=== PATIENT | female | born 1980 | race Caucasian/White ===

== ENCOUNTER 2020-10-25 16:32 | Emergency (ER) | payer OTHER ==
[~2020-10-25] VITALS: Ht 157.5 cm; Wt 127.8 kg
[~2020-10-25 16:32] MED LIST: METO10TA81 PO
[2020-10-25] MEDS ORDERED: ONDANSETRON ODT 4 MG TAB.RAPDIS PO ONE (17:00)
[2020-10-25] MEDS ORDERED: IV NORMAL SALINE 1,000ML 1,000 ML IV ONE (18:00)
[2020-10-25] MEDS ORDERED: diphenhydrAMINE 50 MG/ML VIAL IVP ONE (18:00)
[2020-10-25] MEDS ORDERED: PROCHLORPERAZINE 10 MG/2 ML VIAL. IV ONE (18:00)
[2020-10-25] MEDS ORDERED: KETOROLAC 15 MG/ML VIAL. IVP ONE (18:00)
--- NOTE | 2020-10-25 18:30 | PHYS DOC ---
Past History Past Medical History: CAD, Depression, Fibromyalgia, GERD, High Cholesterol, Hypertension Past Surgical History: Cholecystectomy, , Tonsillectomy Alcohol Use: Occasionally Drug Use: None General Adult EDM: Chief Complaint: MULTIPLE COMPLAINTS HPI: HPI: Patient is a 40-year-old female being seen in the ER for sore throat and migraine headache. Patient reports that her daughter was positive for strep yesterday so she is concerned that she may have strep also. Patient denies any shortness of breath or difficulty swallowing. Patient has a history of migraine headaches and she takes a triptan. She states that her triptan is just not been helping with her pain. She is reporting nausea and photophobia and phonophobia. She states that this is not the worst headache she is ever experienced and this is very consistent with her typical migraines. She denies any fevers, neck stiffness, vision changes, cough, Covid exposures. Review of Systems: Review of Systems: 14 body systems of the review of systems have been reviewed. See HPI for pertinent positive and negative responses, otherwise all other systems are negative, nonpertinent or noncontributory Current Medications: Current Meds: Current Medications Medications (Trade) Dose Ordered Sig/Nitish Start Time Stop Time Status Last Admin Dose Admin Diphenhydramine HCl (Benadryl) 25 mg 1X ONCE 10/25/20 18:00 10/25/20 18:01 DC Ketorolac Tromethamine (Toradol 15mg Vial) 15 mg 1X ONCE 10/25/20 18:00 10/25/20 18:01 DC Ondansetron HCl (Zofran Odt) 4 mg 1X ONCE 10/25/20 17:00 10/25/20 17:01 DC 10/25/20 17:01 4 MG Prochlorperazine Edisylate (Compazine) 10 mg 1X ONCE 10/25/20 18:00 10/25/20 18:01 DC Sodium Chloride 1,000 ml @ 1,000 mls/hr 1X ONCE 10/25/20 18:00 10/25/20 18:59 Allergies: Allergies: Allergies Coded Allergies Type Severity Reaction Last Updated Verified dichloralphenazone Allergy Intermediate "ITCHY, DIZZY, SHORTNESS OF BREATH" 06/28/14 Yes isometheptene Allergy Intermediate "ITCHY, DIZZY, SHORTNESS OF BREATH" 06/28/14 Yes Physical Exam: PE: Constitutional: Well developed, well nourished, no acute distress, non-toxic appearance. [] HENT: Normocephalic, atraumatic, bilateral external ears normal, oropharynx moist, no oral exudates, nose normal, erythematous pharynx, no tonsillar enlargement, no exudate. [] Eyes: PERRL, 5 mm pupils bilaterally, EOMI, conjunctiva normal, no discharge. [] Neck: Normal range of motion, no neutral rigidity, no tenderness, supple, no stridor, no cervical lymphadenopathy, no occipital lymphadenopathy. [] Cardiovascular:Heart rate regular rhythm, no murmur [] Lungs & Thorax: Bilateral breath sounds clear to auscultation [] Abdomen: Bowel sounds normal, soft, no tenderness, no masses, no pulsatile masses. [] Skin: Warm, dry, no erythema, no rash. [] Back: No tenderness, normal range of motion Extremities: No tenderness, no cyanosis, no clubbing, ROM intact, no edema. [] Neurologic: Alert and oriented X 3, normal motor function, normal sensory function, no focal deficits noted. [] Psychologic: Affect normal, judgement normal, mood normal. [] Current Patient Data: Labs: Laboratory Tests Test 10/25/20 16:51 Group A Streptococcus Rapid Negative (NEGATIVE) Vital Signs: Vital Signs Date Time Temp Pulse Resp B/P (MAP) Pulse Ox O2 Delivery O2 Flow Rate FiO2 10/25/20 16:44 97.6 72 14 152/76 (101) 98 Room Air EKG: EKG: [] Radiology/Procedures: Radiology/Procedures: [] Heart Score: C/O Chest Pain: No Risk Factors: Risk Factors: DM, Current or recent (<one month) smoker, HTN, HLP, family history of CAD, obesity. Risk Scores: Score 0 - 3: 2.5% MACE over next 6 weeks - Discharge Home Score 4 - 6: 20.3% MACE over next 6 weeks - Admit for Clinical Observation Score 7 - 10: 72.7% MACE over next 6 weeks - Early Invasive Strategies Course & Med Decision Making: Course & Med Decision Making Pertinent Labs and Imaging studies reviewed. (See chart for details) Patient is a 40-year-old female being seen in the ER for sore throat. Her rapid strep test was negative. Patient is also being seen in the ER for a migraine headache. She states that her headache is very typical of her migraine headaches she takes a triptan at home without any relief in her symptoms. She was given a Zofran prior to being brought back to the ER room and she states that it is drastically improved her symptoms. But she still has a mild headache. Denies thunderclap headache, denies nuchal rigidity, no meningeal signs. Patient treated with migraine cocktail in the ER and she reports improvement in her symptoms. She is requesting Zofran prescription for home. Patient be discharged home to follow-up with her primary care provider. Patient advised to do warm salt water gargles take Tylenol/ibuprofen and take her triptan as directed. I discussed with patient all findings and diagnostic testing as well as the need to follow-up with PCP for further evaluation and treatment or return to the ER if any new or worsening symptoms. Strict return precautions were also discussed at length. Patient voiced understanding and agreement with the plan. Patient is hemodynamically stable at the time of disposition. Molly Disclaimer: Molly Disclaimer: This electronic medical record was generated, in whole or in part, using a voice recognition dictation system. Departure Departure: Impression: Primary Impression: Migraine headache Qualified Codes: G43.909 - Migraine, unspecified, not intractable, without status migrainosus Disposition: 01 HOME / SELF CARE / HOMELESS Condition: GOOD Referrals: TEO FIGUEROA (PCP) Patient Instructions: Migraine Headache, Sore Throat, [id number] Additional Instructions: You were seen in the ER today for a migraine headache and a sore throat. Your rapid strep test was negative. You can use warm salt water gargles. Throat culture is being sent out and you will be notified of those results when they become available. You can take Tylenol/ibuprofen for pain. You were seen in the ER for a migraine headache, you were treated with a migraine cocktail. You are being discharged home with medication for nausea, please use this as directed. Continue to take your migraine medications as previously prescribed. Increase your fluids and rest. Avoid watching TV, cell phone use or tablet use. Rest in a dark quiet area. Please avoid any triggers for migraines. Follow-up with your primary care provider tomorrow regarding your ER visit. If you develop worsening of your headache, sore throat, weakness, speech issues difficulty swallowing or breathing, high fevers refractory to treatment or intractable nausea or vomiting please return to the ER. EMERGENCY DEPARTMENT GENERAL DISCHARGE INSTRUCTIONS Thank you for coming to [facility] (ED) today and trusting us with you care. We trust that you had a positivie experience in our Emergency Department. If you wish to speak to the department management, you may call the director at [phone]. YOUR FOLLOW UP INSTRUCTIONS ARE FOLLOWS: 1. Do you have a private Doctor? If you do not have a private doctor, please ask for a resource list of physicians or clinics that may be able to assist you with follow up care. 2. The Emergency Physician has interpreted your x-rays. The X-Ray specialist will also review them. If there is a change in the findings, you will be notified in 48 hours when at all possible. 3. A lab test or culture has been done, your results will be reviewed and you will be notified if you need a change in treatment. ADDITIONAL INSTRUCTIONS AND INFORMATION: 1. Your care today has been supervised by a physician who is specially trained in emergency care. Many problems require more than one evaluation for a complete diagnosis and treatment. We recommend that you schedule your follow up appointment as recommended to ensure complete treatment of you illness or injury. If you are unable to obtain follow up care and continue to have a problem, or if your condition worsens, we recommend that you return to the ED. 2. We are not able to safely determine your condition over the phone nor are we able to give sound medical advice over the phone. For these safety reasons, if you call for medical advice we will ask you to come to the ED for further evaluation. 3. If you have any questions regarding these discharge instructions please call the ED at [phone]. SAFETY INFORMATION: In the interest of safety, wellness, and injury prevention; we encourage you to wear your sealbelt, if you smoke; quite smoking, and we encourage family to use a protective helmet for bicycling and other sporting events that present an increased risk for head injury. IF YOUR SYMPTOMS WORSEN OR NEW SYMPTOMS DEVELOP, OR YOU HAVE CONCERNS ABOUT YOUR CONDITION; OR IF YOUR CONDITION WORSENS WHILE YOU ARE WAITING FOR YOUR FOLLOW UP APPOINTMENT; EITHER CONTACT YOUR PRIMARY CARE DOCTOR, THE PHYSICIAN WHOSE NAME AND NUMBER YOU WERE GIVEN, OR RETURN TO THE ED IMMEDIATELY. Scripts Ondansetron (ONDANSETRON ODT) 4 Mg Tab.rapdis 1 TAB PO PRN Q6-8HRS for nausea for 7 Days, #28 TAB 0 Refills Prov: GOLDEN COTA APRN 10/25/20 GOLDEN COTA APRN Oct 25, 2020 18:30
[2020-10-25] MEDS ORDERED: ONDA4TAB12 PO (18:51)
[2020-10-25 18:55] VITALS: BP 148/72
== END 2020-10-25 19:02 | disposition home or self-care (01) ==
LOC: ER 16:32
DX: G43.909 Migraine, unspecified, not intractable, without status migrainosus (principal); I25.10 Atherosclerotic heart disease of native coronary artery without angina pectoris; F32.9 Major depressive disorder, single episode, unspecified; M79.7 Fibromyalgia; K21.9 Gastro-esophageal reflux disease without esophagitis; E78.00 Pure hypercholesterolemia, unspecified; I10 Essential (primary) hypertension; Z88.8 Allergy status to other drugs, medicaments and biological substances
CPT/HCPCS: 87070; 87880; 96374; 96375; 99284; J1200; J1885; Q0162

== ENCOUNTER 2020-10-29 19:32 | Emergency (ER) | payer OTHER ==
[~2020-10-29] VITALS: Ht 157.5 cm; Wt 127.8 kg
[~2020-10-29 19:32] MED LIST changes: +ONDA4TAB12 PO
[2020-10-29] MEDS ORDERED: DEXAMETHASONE 4 MG TABLET PO ONE (19:45)
[2020-10-29 19:46] VITALS: BP 153/81
--- NOTE | 2020-10-29 20:16 | RAD ---
XR CHEST 1V Clinical History: Reason: cough / Spl. Instructions: / History: Technique: AP view of the chest was obtained at 10/29/2020 7:49 PM. Comparison: June 28, 2014. Findings: The cardiomediastinal silhouette is normal. The pulmonary vasculature is normal. The lungs and pleura l margins are clear. Impression: No evidence of an acute cardiopulmonary process. Electronically signed by: Tyshawn Salgado III, MD (10/29/2020 8:14 PM) [facility]
[2020-10-29] MEDS ORDERED: ALBU2.5V5 NEB (20:32)
[2020-10-29] MEDS ORDERED: PRED20TA PO (20:32)
[2020-10-29] MEDS ORDERED: BENZ100C PO (20:32)
--- NOTE | 2020-10-29 20:32 | PHYS DOC ---
Past History Past Medical History: CAD, Depression, Fibromyalgia, GERD, High Cholesterol, Hypertension Past Surgical History: Cholecystectomy, , Tonsillectomy Alcohol Use: None Drug Use: None General Adult EDM: Chief Complaint: ASTHMA HPI: HPI: Patient is a [age] year old [sex] who presents with [] Review of Systems: Review of Systems: Constitutional: Denies fever or chills Eyes: Denies redness or eye pain HENT: Denies nasal congestion or sore throat Respiratory: Denies cough or shortness of breath Cardiovascular: Denies chest pain or palpitations GI: Denies abdominal pain, nausea, or vomiting : Denies dysuria or hematuria Musculoskeletal: Denies back pain or joint pain Integument: Denies rash or skin lesions Neurologic: Denies headache, focal weakness or sensory changes Complete systems were reviewed and found to be within normal limits, except as documented in this note. Current Medications: Current Meds: Current Medications Medications (Trade) Dose Ordered Sig/Nitish Start Time Stop Time Status Last Admin Dose Admin Dexamethasone (Decadron) 10 mg 1X ONCE 10/29/20 19:45 10/29/20 19:52 DC 10/29/20 19:56 10 MG Allergies: Allergies: Allergies Coded Allergies Type Severity Reaction Last Updated Verified dichloralphenazone Allergy Intermediate "ITCHY, DIZZY, SHORTNESS OF BREATH" 06/28/14 Yes isometheptene Allergy Intermediate "ITCHY, DIZZY, SHORTNESS OF BREATH" 06/28/14 Yes Physical Exam: PE: Constitutional: Well developed, well nourished, no acute distress, non-toxic appearance HENT: Normocephalic, atraumatic Eyes: PERRL, EOMI, conjunctiva normal, no discharge Neck: Normal range of motion, no tenderness, supple Lungs & Thorax: No respiratory distress, equal chest rise and fall Abdomen: Soft, no tenderness Skin: Warm, dry, no erythema, no rash Back: No tenderness, no CVA tenderness Extremities: No tenderness, ROM intact, no edema Neurologic: Alert and oriented X 3, normal motor function, normal sensory function, no focal deficits noted Psychologic: Affect normal, judgment normal Current Patient Data: Vital Signs: Vital Signs Date Time Temp Pulse Resp B/P (MAP) Pulse Ox O2 Delivery O2 Flow Rate FiO2 10/29/20 19:46 98.4 103 30 153/81 (105) 93 Room Air EKG: EKG: [] Radiology/Procedures: Radiology/Procedures: PROCEDURE: CHEST AP ONLY XR CHEST 1V Clinical History: Reason: cough / Spl. Instructions: / History: Technique: AP view of the chest was obtained at 10/29/2020 7:49 PM. Comparison: June 28, 2014. Findings: The cardiomediastinal silhouette is normal. The pulmonary vasculature is normal. The lungs and pleural margins are clear. Impression: No evidence of an acute cardiopulmonary process. Electronically signed by: Tyshawn Salgado III, MD (10/29/2020 8:14 PM) [facility] Heart Score: C/O Chest Pain: N/A Course & Med Decision Making: Course & Med Decision Making Pertinent Labs and Imaging studies reviewed. (See chart for details) Patient stable for discharge with outpatient follow-up with PCP. Discussed findings and plan with patient, who acknowledges understanding and agreement. COVID-19 CRITERIA: The patient was evaluated during the global COVID-19 pandemic, and that diagnosis was suspected/considered upon their initial presentation. Their evaluation, treatment and testing was consistent with current guidelines for patients who present with complaints or symptoms that may be related to COVID-19. Dragon Disclaimer: [employer] Disclaimer: This electronic medical record was generated, in whole or in part, using a voice recognition dictation system. Departure Departure: Impression: Primary Impression: Bronchitis Disposition: 01 HOME / SELF CARE / HOMELESS Condition: STABLE Referrals: TEO FIGUEROA (PCP) Patient Instructions: Acute Bronchitis, [id number] Additional Instructions: You have been tested for or diagnosed with COVID-19. It is an infection caused by a new type of coronavirus. COVID-19 will cause cold-like or mild flu symptoms in most. It can cause more severe symptoms like problems breathing in some. There is no treatment for COVID-19. The body will clear the infection over time. Self-care will help to ease discomfort. Steps to Take: Self-Care Rest as needed. Healthy habits may help you feel better. Steps include: Choose healthy foods including fruits and vegetables. Drink water throughout the day. Get plenty of sleep each night. If you smoke, try to quit. It may ease breathing. Avoid alcohol. Keep Others Healthy The virus can spread to others. Droplets are released every time you sneeze or cough. The droplets can get into the mouth, nose, or eyes of people near you and lead to infection. To lower the chances of spreading COVID-19 to others: Stay at home until your doctor has said it is safe to leave. If you tested positive this will mean staying isolated until both of the following are true: At least 7 days have passed since the start of illness. You are free of fever for at least 72 hours without the use of medicine. During this time: - Avoid public areas, events, or transportation. Do not return to work or school until your doctor has said it is safe to do so. - Call ahead if you need to go to a medical center. Let them know you may have COVID-19. It will help them guide you where to go. They may also ask you to wear a facemask when you come to the office. - If you call for emergency medical services, let them know you may have COVID- 19. While at home: - Try to avoid close contact with others. Stay about 6 feet away. - If possible, spend most of your time in a separate room from others. - Use a face mask if you will be in close contact with others such as sharing a room or vehicle. - Have someone wipe down common surfaces in the home. Use household brokerage clerk every day on areas like doorknobs, counters, or sinks. - Cough or sneeze into a tissue. Throw the tissue away right after use. If a tissue is not available, cough or sneeze into your elbow. - Wash your hands often. Wash them after sneezing or coughing. Use soap and water and wash for at least 20 seconds. Alcohol based hand hand fur cleaner can be used if soap and water is not available. - Do not prepare food for others. Avoid sharing personal items like forks, spoons, or toothbrushes. - Avoid close contact with pets while you are sick. There is no evidence of the virus passing to pets. This is a safety step until more is known about this virus. Isolation can be frustrating. Social interaction can help. Keep in touch with friends and family through phone and tech options. You can still interact with others in your home, just keep a safe distance of about 6 feet. Follow-up: Your doctors office will check in with you to see if there are any changes in your health. You may be asked to keep track of symptoms to share with them. They will also let you know when you are clear to be in public again. Problems to Look Out For: Contact your doctor if your recovery is not going as you expect. Get emergency care if you have problems such as: - Trouble breathing - Nonstop chest pain or pressure - Changes in awareness, confusion, or problems waking - Lips or face have bluish color - Worsening of symptoms If you think you have an emergency, call for emergency medical services right away. As taken from [employer] Benzonatate (TESSALON PERLE) 100 Mg Capsule 1 CAP PO TID PRN for COUGH, #30 CAP Prov: DAVON PERES DO 10/29/20 Albuterol Sulfate (ALBUTEROL SULFATE NEB SOLN ) 2.5 Mg/3 Ml Vial.neb 1 VIAL NEB PRN Q4HRS PRN for WHEEZING, #50 VIAL Prov: DAVON PERES DO 10/29/20 Prednisone (PREDNISONE) 20 Mg Tablet 2 TAB PO DAILY for Bronchitis, #8 TAB Start this prescription tomorrow, 10/30/20 Prov: DAVON PERES DO 10/29/20 DAVON PERES DO Oct 29, 2020 20:32
--- NOTE | 2020-10-31 19:21 | NUR ---
IP: Attempted to notify patient of negative COVID19 test result. Voicemail message to please return call at the phone number provided.
--- NOTE | 2020-11-01 10:36 | NUR ---
IP: Patient notified of negative COVID19 test result. Verbalized understanding.
== END 2020-10-29 20:35 | disposition home or self-care (01) ==
LOC: ER 19:32
DX: J40 Bronchitis, not specified as acute or chronic (principal); I25.10 Atherosclerotic heart disease of native coronary artery without angina pectoris; F32.9 Major depressive disorder, single episode, unspecified; M79.7 Fibromyalgia; K21.9 Gastro-esophageal reflux disease without esophagitis; E78.00 Pure hypercholesterolemia, unspecified; I10 Essential (primary) hypertension; Z88.8 Allergy status to other drugs, medicaments and biological substances
CPT/HCPCS: 71045; 99284; C9803; J8540; U0003

== ENCOUNTER 2021-03-04 22:27 | Emergency (ER) | payer OTHER, MEDICARE ==
[~2021-03-04] VITALS: Ht 157.5 cm; Wt 127.8 kg
[~2021-03-04 22:27] MED LIST changes: +ALBU2.5V5 NEB; +BENZ100C PO; +PRED20TA PO
--- NOTE | 2021-03-04 22:33 | PHYS DOC ---
Past History Past Medical History: Anxiety, Asthma, CAD, Depression, Diabetes, Fibromyalgia, GERD, High Cholesterol, Hypertension Past Surgical History: Cholecystectomy, , Tonsillectomy Smoking: Non-smoker Alcohol Use: None Drug Use: None General Adult HPI: HPI: ".. I got this abscess.. I am on Bactrim.... I have 4 days left... I think it needs to be drained..." Patient is a 40 year old female who presents with above hx and complaints of Lt axillary abscess. Patient denies any history of immunosuppression. Does not remember her last tetanus shot. No recent travel. No specific ill contacts. Patient has had an abscesses before in axillary and labial area. Patient does have a very swollen axillary area and adenopathy with a fluctuating site consistent with abscess and cellulitis. Review of Systems: Review of Systems: Constitutional: Denies fever or chills Eyes: Denies change in visual acuity HENT: Denies nasal congestion or sore throat Respiratory: Denies cough or shortness of breath Cardiovascular: Denies chest pain or edema GI: Denies abdominal pain, nausea, vomiting, bloody stools or diarrhea : Denies dysuria Musculoskeletal: Denies back pain or joint pain Integument: Complains of cellulitis and abscess Neurologic: Denies headache, focal weakness or sensory changes Endocrine: Denies polyuria or polydipsia Lymphatic: Denies swollen glands Psychiatric: Denies depression or anxiety Family History: Family History: Noncontributory to presentation Current Medications: Current Meds: See nursing for home meds Allergies: Allergies: Allergies Coded Allergies Type Severity Reaction Last Updated Verified dichloralphenazone Allergy Intermediate "ITCHY, DIZZY, SHORTNESS OF BREATH" 06/28/14 Yes isometheptene Allergy Intermediate "ITCHY, DIZZY, SHORTNESS OF BREATH" 06/28/14 Yes Physical Exam: PE: Constitutional: in acute distress, non-toxic appearance. [] HENT: Normocephalic, atraumatic, bilateral external ears normal, oropharynx mo ist, no oral exudates, nose normal. [] Eyes: PERRLA, EOMI, conjunctiva normal, no discharge. [] Neck: Normal range of motion, no tenderness, supple, no stridor. [] Cardiovascular:Heart rate regular rhythm, no murmur [] Lungs & Thorax: Bilateral breath sounds clear to auscultation [] Abdomen: Bowel sounds normal, soft, no tenderness, no masses, no pulsatile masses. Obese Skin: Warm, dry, no erythema, no rash. Cellulitis abscess left axillary Back: No tenderness, no CVA tenderness. [] Extremities: No tenderness, no cyanosis, no clubbing, ROM intact, no edema. [] Neurologic: Alert and oriented X 3, normal motor function, normal sensory function, no focal deficits noted. [] Psychologic: Affect anxious, judgement normal, mood normal. [] EKG: EKG: [] Radiology/Procedures: Radiology/Procedures: [] Heart Score: C/O Chest Pain: N/A Risk Factors: Risk Factors: DM, Current or recent (<one month) smoker, HTN, HLP, family history of CAD, obesity. Risk Scores: Score 0 - 3: 2.5% MACE over next 6 weeks - Discharge Home Score 4 - 6: 20.3% MACE over next 6 weeks - Admit for Clinical Observation Score 7 - 10: 72.7% MACE over next 6 weeks - Early Invasive Strategies Course & Med Decision Making: Course & Med Decision Making Pertinent Labs and Imaging studies reviewed. (See chart for details) Procedure note-incision and drainage- Left axillary cleaned with Betadine. 1 stick with 15 blade. Removed about 60 cc of pus. Q-tip used to break up septations. Then placed quarter inch iodoform gauze packing. Gauze dressing. Patient to use warm salt water or Epson salt compresses 4 times a day. Patient take Bactrim additional 10 days. After completing Bactrim take Diflucan 100 mg for 3 days. Follow-up primary care. Return if any concerns. Warned patient against using deodorants and shaving axillary area. Patient return if any concerns. Current packing needs to be removed in 3 days. Advised patient this may need repacking. Warned patient there still may be drainage and bleeding from site. Impression: 1. Abscess/cellulitis left axillary [] Dragon Disclaimer: Molly Disclaimer: This electronic medical record was generated, in whole or in part, using a voice recognition dictation system. Departure Departure: Referrals: TEO FIGUEROA (PCP) Scripts Fluconazole (DIFLUCAN) 100 Mg Tablet 100 MG PO DAILY for post antibiotics for 3 Days, #3 TAB Prov: JESUS KESSLER MD 03/04/21 Sulfamethoxazole/Trimethoprim (BACTRIM DS TABLET) 1 Each Tablet 1 TAB PO BID for abscess for 10 Days, #20 TAB 0 Refills Prov: JESUS KESSLER MD 03/04/21 Dragon Disclaimer This chart was dictated in whole or in part using Voice Recognition software in a busy, high-work load, and often noisy Emergency Department environment. It may contain unintended and wholly unrecognized errors or omissions. JESUS KESSLER MD Mar 04, 2021 22:33
[2021-03-04 22:44] VITALS: BP 124/86
[2021-03-04] MEDS ORDERED: SULF1TAB24 PO (23:17)
[2021-03-04] MEDS ORDERED: FLUC100T7 PO (23:17)
[2021-03-04] MEDS ORDERED: DIPHTH,PERTUSS(ACELL),TET TOX 0.5 ML DISP.SYRIN. VAX IM ONE (23:45)
[2021-03-04] MEDS ORDERED: cefTRIAXone IM 1 GM VIAL IM ONE (23:45)
[2021-03-04] MEDS ORDERED: ACETAMINOPHEN 500 MG TABLET PO ONE (23:45)
== END 2021-03-04 23:34 | disposition home or self-care (01) ==
LOC: ER 22:27
DX: L02.412 Cutaneous abscess of left axilla (principal); L03.112 Cellulitis of left axilla; I25.10 Atherosclerotic heart disease of native coronary artery without angina pectoris; E11.9 Type 2 diabetes mellitus without complications; M79.7 Fibromyalgia; K21.9 Gastro-esophageal reflux disease without esophagitis; E78.00 Pure hypercholesterolemia, unspecified; I10 Essential (primary) hypertension; Z88.8 Allergy status to other drugs, medicaments and biological substances
CPT/HCPCS: 10060; 90471; 90715; 96372; 99284; J0696